=== PATIENT | male | born 1975 | race Caucasian/White ===

== ENCOUNTER 2018-10-13 22:00 | Emergency (ER) | payer SELFPAY ==
[~2018-10-13] VITALS: Ht 177.8 cm; Wt 89.0 kg
[2018-10-13 22:01] VITALS: BP 144/82
== END 2018-10-13 22:33 | disposition home or self-care (01) ==
LOC: ED 22:27
DX: F12.10 Cannabis abuse, uncomplicated (principal); J44.9 Chronic obstructive pulmonary disease, unspecified
CPT/HCPCS: 99281

== ENCOUNTER 2018-11-03 09:20 | Emergency (ER) | payer MEDICAID, OTHER ==
[~2018-11-03] VITALS: Ht 177.8 cm; Wt 88.7 kg
--- NOTE | 2018-11-03 09:51 | NUR ---
report from ashleigh durham. pt speaking with med student at this time. no needs expressed. vss. awaiting edmd assessment and orders.
[2018-11-03] MEDS ORDERED: ASPIRIN 81 MG TABLET CHEW PO ONE (10:00)
[2018-11-03] MEDS ORDERED: ASPIRIN 81 MG TABLET CHEW ONE (10:09)
[2018-11-03 10:20] VITALS: BP 131/83
--- NOTE | 2018-11-03 10:21 | NUR ---
ORDERS RECEIVED AND IMPLEMENTED. BLOOD DRAWN. MEDICATED PER SEP. XR COMPLETE. PT STATES HIS BIRTHDAY IS INCORRECT. PT STATES HE BEEN HERE MULTIPLE TIMES, BUT ONLY SHOWS 2 TIMES IN COMPUTER. PT UNABLE TO VERIFY BIRTHDATE WITH ID AT THIS TIME. REGISTRATION AWARE AND BIRTHDATE UPDATED PER PT REQUEST. AWAITING RESULTS.
[2018-11-03 10:40] LABS: BASOPHILS # (AUTO) 0.04 x10^3/uL (0-0.1); BASOPHILS % (AUTO) 1 % (0-1); EOSINOPHILS # (AUTO) 0.04 x10^3/uL (0-0.4); EOSINOPHILS % (AUTO) 1 % (1-7); LYMPHOCYTES # (AUTO) 0.98 x10^3/uL (1-3.4); LYMPHOCYTES % (AUTO) 15 % (22-44); MD NO; MEAN CORPUSCULAR HEMOGLOBIN 33.3 pg (27.5-34.5); MEAN CORPUSCULAR HGB CONC 35.3 g/dL (33.2-36.2); MEAN CORPUSCULAR VOLUME 94.3 fL (81-97); MEAN PLATELET VOLUME 7.7 fL (7.4-10.4); MONOCYTES # (AUTO) 0.44 x10^3/uL (0.2-0.8); MONOCYTES % (AUTO) 7 % (2-9); NEUTROPHILS % (AUTO) 77 % (42-75); PLATELET COUNT 235 x10^3/uL (130-400); RED BLOOD COUNT 4.98 x10^6/uL (4.38-5.82); RED CELL DISTRIBUTION WIDTH 12.5 % (9.4-14.8)
[2018-11-03 10:49] LABS: ALBUMIN 3.5 g/dL (3.4-5.0); ANION GAP 5 mmol/L (5-15); CALCIUM 8.5 mg/dL (8.5-10.1); CHLORIDE 109 mmol/L (98-107); CREATININE 0.92 mg/dL (0.7-1.3)
[2018-11-03 10:53] LABS: TROPONIN I < 0.015 ng/mL (0.000-0.045)
[2018-11-03] MEDS ORDERED: ALBUTEROL SULFATE 2.5 MG/3 ML ONE (11:17)
[2018-11-03] MEDS: ALBUTEROL SULFATE 2.5 MG/3 ML NPPB SCH (11:21)
== END 2018-11-03 12:41 | disposition left against medical advice (07) ==
LOC: EDBD 09:20 → ED 10:49
DX: J20.8 Acute bronchitis due to other specified organisms (principal); F17.210 Nicotine dependence, cigarettes, uncomplicated; Z95.1 Presence of aortocoronary bypass graft; Z88.5 Allergy status to narcotic agent
CPT/HCPCS: 36415; 71045; 80048; 82040; 84484; 85025; 93005; 94640; 99284; J7613

== ENCOUNTER 2020-03-21 18:54 | Inpatient (IN) | payer MEDICAID, OTHER ==
[~2020-03-21] VITALS: Ht 177.8 cm; Wt 83.7 kg
--- NOTE | 2020-03-21 19:02 | NUR ---
THIS PT WAS SENT FROM [facility] FOR A CARDIOLOGY CONSULT. HE HAS HAD CP/ SOB FOR 2 MONTHS THAT HAS BEEN EXACERBATED BY THE SMOKE. PT HAS A HX OF 5 WAY CABAG, AND COPD. HE DOES NOT WEAR O2 AT HOME. PER SEMSA PT HAD NEGATIVE TROPS FROM SENDING FACILITY BUT AN ABNORMAL EKG INCLUDING "BORERLINE ST DEPRESSION" HOWEVER THERE IS NO PRIOR EKG TO COMPARE THESE FINDINGS. UPON ARRIVAL, PT IMMEDIATELY PLACED ON CARDIAC, BP AND O2 MONITORS. EKG DONE. ERP TO BEDSIDE.
--- NOTE | 2020-03-21 19:51 | NUR ---
PATIENT AMBULATORY TO RESTROOM, TOLERATED WELL. PATIENT GIVEN BLANKETS, LIGHTS DIMMED,CALL LIGHT WITHIN REACH, BED IN LOWEST LOCKED POSITION. PATIENT DENIES ANY FURTHER NEEDS AT THIS TIME.
[2020-03-21] MEDS ORDERED: ASPI-496 PO (20:54)
[2020-03-21 21:45] VITALS: BP 126/71
[2020-03-21] MEDS ORDERED: ACETAMINOPHEN 325 MG TABLET PO PRN (22:00)
[2020-03-21] MEDS ORDERED: hydrALAzine 20 MG/ML, 1ML IVPush PRN (22:00)
[2020-03-21] MEDS ORDERED: DOCUSATE 100 MG CAPSULE PO PRN (22:00)
[2020-03-21] MEDS ORDERED: MELATONIN 5 MG TABLET PO PRN (22:00)
[2020-03-21] MEDS ORDERED: NITROGLYCERIN 0.4 MG BOTTLE (25 TABS) SL PRN (22:00)
[2020-03-21] MEDS ORDERED: LIDODERM 5% PATCH TD PRN (22:00)
[2020-03-21 23:54] LABS: TROPONIN I < 0.015 ng/mL (0.000-0.045)
[2020-03-22 00:24] VITALS: BP 157/83
[2020-03-22 04:51] LABS: BASOPHILS # (AUTO) 0.04 x10^3/uL (0-0.1); BASOPHILS % (AUTO) 1 % (0-1); EOSINOPHILS # (AUTO) 0.17 x10^3/uL (0-0.4); EOSINOPHILS % (AUTO) 3 % (1-7); LYMPHOCYTES # (AUTO) 1.76 x10^3/uL (1-3.4); LYMPHOCYTES % (AUTO) 29 % (22-44); MD NO; MEAN CORPUSCULAR HEMOGLOBIN 32.8 pg (27.5-34.5); MEAN CORPUSCULAR HGB CONC 33.2 g/dL (33.2-36.2); MEAN PLATELET VOLUME 7.8 fL (7.4-10.4); MONOCYTES # (AUTO) 0.47 x10^3/uL (0.2-0.8); MONOCYTES % (AUTO) 8 % (2-9); NEUTROPHILS # (AUTO) 3.62 x10^3/uL (1.8-6.8); NEUTROPHILS % (AUTO) 60 % (42-75); PLATELET COUNT 181 x10^3/uL (130-400); RED BLOOD COUNT 4.88 x10^6/uL (4.38-5.82); RED CELL DISTRIBUTION WIDTH 13.2 % (9.4-14.8)
[2020-03-22 04:59] LABS: CHLORIDE 109 mmol/L (98-107)
[2020-03-22] MEDS: HEPARIN 5,000 UNITS/ML, 1ML SQ SCH ×3 (05:00→20:55)
[2020-03-22 05:10] LABS: ALANINE AMINOTRANSFERASE 17 U/L (12-78); ALBUMIN 3.4 g/dL (3.4-5.0); ALKALINE PHOSPHATASE 73 U/L (45-117); ANION GAP 6 mmol/L (5-15); BILIRUBIN,TOTAL 0.5 mg/dL (0.2-1.0); CALCIUM 8.5 mg/dL (8.5-10.1); CHOL/HDL RATIO 7.2; CHOLESTEROL, TOTAL 231 mg/dL (140-239); CREATININE 0.83 mg/dL (0.7-1.3); HDL CHOL % 14 % (26-37); HDL CHOLESTEROL (DIRECT) 32 mg/dL (40-60); TOTAL PROTEIN 6.7 g/dL (6.4-8.2); TRIGLYCERIDES 514 mg/dL (50-200); TROPONIN I 0.023 ng/mL (0.000-0.045)
[2020-03-22 06:45] VITALS: BP 134/71
[2020-03-22] MEDS ORDERED: REGADENOSON 0.4 MG/5 ML SYRINGE ONE (08:48)
[2020-03-22 11:30] VITALS: BP 118/70
[2020-03-22] MEDS: LISINOPRIL 10 MG TABLET PO SCH (11:38)
[2020-03-22] MEDS: ISOSORBIDE MONONITRATE ER 30 MG TABLET PO SCH (11:39)
[2020-03-22] MEDS: ASPIRIN 81 MG TABLET EC PO SCH (11:39)
[2020-03-22] MEDS: METOPROLOL TARTRATE 25 MG TAB PO SCH ×2 (11:39→17:49)
[2020-03-22 12:41] VITALS: BP 119/68
[2020-03-22] MEDS ORDERED: ONDANSETRON ODT 4 MG PO PRN (14:30)
[2020-03-22] MEDS ORDERED: ONDANSETRON 2MG/ML, 2ML IVPush PRN (14:30)
[2020-03-22 20:55] VITALS: BP 101/62
[2020-03-22] MEDS: ATORVASTATIN 40 MG TABLET PO SCH (20:55)
[2020-03-23 01:00] VITALS: BP 110/68
[2020-03-23] MEDS: HEPARIN 5,000 UNITS/ML, 1ML SQ SCH ×3 (04:31→22:04)
[2020-03-23] MEDS: METOPROLOL TARTRATE 25 MG TAB PO SCH ×2 (05:31→17:07)
[2020-03-23 06:34] VITALS: BP 117/71
[2020-03-23] MEDS: LISINOPRIL 10 MG TABLET PO SCH (08:46)
[2020-03-23 08:47] VITALS: BP 119/74
[2020-03-23] MEDS: ASPIRIN 81 MG TABLET EC PO SCH (08:47)
[2020-03-23] MEDS: ISOSORBIDE MONONITRATE ER 30 MG TABLET PO SCH (08:47)
[2020-03-23] MEDS ORDERED: FENTANYL PF 100 MCG/2ML ONE (12:33)
[2020-03-23] MEDS ORDERED: MIDAZOLAM 1 MG/ML, 5ML ONE (12:33)
[2020-03-23] MEDS ORDERED: VERAPAMIL 2.5 MG/ML, 2ML ONE (12:34)
[2020-03-23] MEDS ORDERED: HEPARIN 1,000 UNITS/ML, 10ML ONE (12:34)
[2020-03-23] MEDS ORDERED: LIDOCAINE-MPF 1%, 5ML ONE (12:34)
[2020-03-23] MEDS ORDERED: BIVALIRUDIN 250 MG ONE (12:34)
[2020-03-23] MEDS ORDERED: TICAGRELOR 90 MG TABLET ONE (12:34)
[2020-03-23] MEDS ORDERED: LIDOCAINE 2%, 20ML ONE (12:55)
[2020-03-23 13:38] VITALS: BP 91/49
[2020-03-23 17:13] VITALS: BP 129/70
[2020-03-23 18:25] VITALS: BP 137/76
[2020-03-23] MEDS: ATORVASTATIN 40 MG TABLET PO SCH (22:04)
[2020-03-24 00:12] VITALS: BP 103/60
[2020-03-24 05:01] LABS: ANION GAP 6 mmol/L (5-15); CALCIUM 8.9 mg/dL (8.5-10.1); CHLORIDE 107 mmol/L (98-107)
[2020-03-24 06:02] VITALS: BP 100/63
[2020-03-24] MEDS: HEPARIN 5,000 UNITS/ML, 1ML SQ SCH (06:02)
[2020-03-24] MEDS: METOPROLOL TARTRATE 25 MG TAB PO SCH (06:02)
[2020-03-24 07:28] VITALS: BP 123/75
[2020-03-24] MEDS ORDERED: ISOS30TA8 PO (08:45)
[2020-03-24] MEDS ORDERED: ATOR40TA78 PO (08:45)
[2020-03-24] MEDS ORDERED: LISI-167 PO (08:45)
[2020-03-24] MEDS ORDERED: METO25TA35 PO (08:47)
[2020-03-24] MEDS: LISINOPRIL 10 MG TABLET PO SCH (08:59)
[2020-03-24] MEDS: ISOSORBIDE MONONITRATE ER 30 MG TABLET PO SCH (08:59)
[2020-03-24] MEDS: ASPIRIN 81 MG TABLET EC PO SCH (08:59)
== END 2020-03-24 11:30 | disposition home or self-care (01) | DRG 287 ==
LOC: ED 19:38 → INTOOBSV 19:46 → EDIP 19:46 → OBSVTOIN 19:46 → 5SO 21:06
PROVIDERS: ADMIT Family Medicine; ATTEND Hospitalist
PROC: 4A023N7 Measurement of Cardiac Sampling and Pressure, Left Heart, Percutaneous Approach (ICD-10-PCS; principal; 2020-03-23)
PROC: B2111ZZ Fluoroscopy of Multiple Coronary Arteries using Low Osmolar Contrast (ICD-10-PCS; 2020-03-23)
PROC: B2151ZZ Fluoroscopy of Left Heart using Low Osmolar Contrast (ICD-10-PCS; 2020-03-23)
PROC: B2131ZZ Fluoroscopy of Multiple Coronary Artery Bypass Grafts using Low Osmolar Contrast (ICD-10-PCS; 2020-03-23)
PROC: B2181ZZ Fluoroscopy of Left Internal Mammary Bypass Graft using Low Osmolar Contrast (ICD-10-PCS; 2020-03-23)
PROC: B3101ZZ Fluoroscopy of Thoracic Aorta using Low Osmolar Contrast (ICD-10-PCS; 2020-03-23)
DX: R07.89 Other chest pain (principal); J44.9 Chronic obstructive pulmonary disease, unspecified; E78.5 Hyperlipidemia, unspecified; I25.10 Atherosclerotic heart disease of native coronary artery without angina pectoris; F12.90 Cannabis use, unspecified, uncomplicated; F17.211 Nicotine dependence, cigarettes, in remission; I10 Essential (primary) hypertension; E78.1 Pure hyperglyceridemia; Z79.82 Long term (current) use of aspirin; Z95.1 Presence of aortocoronary bypass graft; Z91.14 Patient's other noncompliance with medication regimen; Z71.6 Tobacco abuse counseling; I25.2 Old myocardial infarction; Z82.49 Family history of ischemic heart disease and other diseases of the circulatory system; Z88.5 Allergy status to narcotic agent; Z79.899 Other long term (current) drug therapy
CPT/HCPCS: 36415; 93017; 93459; 93567; J3490; 78452; 80048; 80053; 80061; 83036; 83735; 84484; 85025; 93005; 93306; 93356; 99156; 99285; C1760; C1769; C1894; G0378; J0583; J1644; J2250; J2785; J3010; Q0162; A9502; Q9967